=== PATIENT | male | born 1995 | race Two or more races ===

== ENCOUNTER 2025-07-24 04:12 | Inpatient (IN) | payer BC, OTHER ==
[~2025-07-24] VITALS: Ht 177.8 cm; Wt 102.3 kg
[2025-07-24] VITALS (7 sets, daily range): BP systolic 114–123; BP diastolic 66–72; PULSE 74–95; RESP 12–18; TEMP 98–99.5; O2SAT 94–100
[2025-07-24] MEDS ORDERED: LIDOCAINE VISCOUS 2% 15ML UD PO ONE (04:30)
[2025-07-24] MEDS ORDERED: MAALOX PLUS or MAALOX 30 ML PO ONE (04:30)
--- NOTE | 2025-07-24 04:33 | ED.PDOC ---
GI ASSESSMENT HPI Comments 29-year-old male who came to ER for abdominal pain. Patient denies any medical problems or any history of abdominal surgeries. States for the past 3 days, episodes of intermittent, sharp epigastric abdominal pain, nonradiating, 10/10 intensity, associated bouts of nausea and vomiting. Cvon-mok-cwedzaf antacid medications offered no relief. States pain is unrelated to food intake. REVIEW OF SYSTEMS: General: No fever, no chills, or fatigue HEENT: No sore throat, no earache, no congestion, no neck pain. Cardiac: No chest pain. No palpitations. Lungs: No shortness of breath, no cough. GI: (+) nausea, (+) vomiting, no diarrhea, no constipation, (+) abdominal pain : No dysuria, frequency, or urgency. No hematuria. Musculoskeletal: No joint pain , no joint swelling, no extremity edema. Skin: No rash, no itching. Neuro: No headache, no dizziness, no weakness EXAM: General: Awake, alert and oriented. No acute distress. Skin: Skin in warm, dry and intact. Appropriate color for ethnicity. HEENT: The head is normocephalic and atraumatic. Conjunctivae are clear without exudates or hemorrhage. Sclera is non-icteric. EOM are intact. No signs of nystagmus. Eyelids are normal in appearance without swelling or lesions. Oral mucosa is pink and moist Neck: The neck is supple with normal range of motion. No JVD. Cardiac: Heart rate and rhythm are normal. No murmurs, gallops, or rubs are aus cultated. Respiratory: No signs of respiratory distress. Lung sounds are clear in all lobes bilaterally without rales, rhonchi, or wheezes. Abdominal: Abdomen is soft, positive right upper quadrant and epigastric tenderness. Bowel sounds are present and normoactive in all four quadrants. Extremities: Upper and lower extremities are atraumatic in appearance without deformity or edema. Neurological: The patient is awake, alert and oriented to person, place, and time with normal speech. Speech is clear. There is no facial asymmetry. Psychiatric: Appropriate mood and affect. Good judgement and insight Chief Complaint: Abdominal Pain Time Seen by MD: 04:33 Reviewed Notes: Nurses Notes Allergies: Coded Allergies: NO KNOWN ALLERGIES (Unverified , 07/24/25) Home Meds Active Scripts Omeprazole (Gnp Omeprazole) 20 Mg Tab, 1 TAB PO DAILY, #90 TAB 1 Refill Prov:DANETTE GALAVIZ MD 07/24/25 Amoxicillin & Pot Clavulanate (AUGMENTIN TABLET) 875 Mg Tb, 875 MG PO BID for 7 Days, #14 TAB Prov:DANETTE GALAVIZ MD 07/24/25 Information Source: Patient Mode of Arrival: Ambulatory Timing: Days Duration: Intermittent Past Medical History PAST MEDICAL HISTORY: Denies Surgical History: Denies all surgeries Family History Family History: Reviewed,noncontributory to illness Social History Smoker: Non-Smoker Alcohol: Denies ETOH Use Drugs: Denies Drug Use Lives In: Home Was a procedure done? Was a procedure done?: No GI differential Dx Differential Diagnosis: Constipation, Diverticular disease, Gastritis/PUD, Gastroenteritis, Pancreatitis, UTI, Urolithiasis X-Ray, Labs, Meds, VS Vital Signs Date Time Temp Pulse Resp B/P (MAP) Pulse Ox O2 Delivery O2 Flow Rate FiO2 07/24/25 06:16 Room Air* 0 21 07/24/25 06:07 98.6 71 14 137/72 (93) 97 98.6 07/24/25 04:20 97.7 74 18 139/84 97 97.7 Lab Test 07/24/25 04:50 Range/Units White Blood Count 7.2 4.4-10.8 10^3/uL Red Blood Count 5.30 4.5-5.90 10^6/uL Hemoglobin 15.8 13.5-17.5 g/dL Hematocrit 45.4 41.0-53.0 % Mean Corpuscular Volume 85.6 80.0-100.0 fL Mean Corpuscular Hemoglobin 29.9 28.0-32.0 pg Mean Corpuscular Hemoglobin Concent 34.9 32.0-36.0 g/dL Red Cell Distribution Width 12.6 11.8-14.3 % Platelet Count 269 140-450 10^3/uL Mean Platelet Volume 7.9 6.9-10.8 fL Neutrophils (%) (Auto) 71.2 37.0-80.0 % Lymphocytes (%) (Auto) 19.9 10.0-50.0 % Monocytes (%) (Auto) 6.2 0.0-12.0 % Eosinophils (%) (Auto) 2.0 0.0-7.0 % Basophils (%) (Auto) 0.7 0.0-2.0 % Neutrophils # (Auto) 5.1 1.6-8.6 10 ^3/uL Lymphocytes # (Auto) 1.4 0.4-5.4 10 ^3/uL Monocytes # (Auto) 0.4 0-1.3 10 ^3/uL Eosinophils # (Auto) 0.1 0-0.8 10 ^3/uL Basophils # (Auto) 0 0-0.2 10 ^3/uL Nucleated Red Blood Cells 0.1 % Prothrombin Time 10.3 9.3-11.8 sec Prothrombin Time INR 0.97 0.9-1.15 Activated Partial Thromboplast Time 26.2 24.5-34.5 SEC Sodium Level 141 136-145 mmol/L Potassium Level 3.7 3.5-5.1 mmol/L Chloride Level 103 98-107 mmol/L Carbon Dioxide Level 28 20-31 mmol/L Anion Gap 10 5-15 Blood Urea Nitrogen 13 9-23 mg/dL Creatinine 1.16 0.700-1.30 mg/dL Glomerular Filtration Rate Calc 87 >90 mL/min BUN/Creatinine Ratio 11.2 10.0-20.0 Serum Glucose 125 H 74-106 mg/dL Calcium Level 9.6 8.7-10.4 mg/dL Total Bilirubin 0.7 0.2-1.0 mg/dL Aspartate Amino Transferase (AST) 20 13-40 U/L Alanine Aminotransferase (ALT) 22 7-40 U/L Alkaline Phosphatase 105 46-116 U/L Total Protein 8.3 H 5.7-8.2 g/dL Albumin 4.6 3.2-4.8 g/dL Lipase 49 12-53 U/L Microbiology Date/Time Source Procedure Growth Status 07/24/25 05:49 Blood Blood Culture - Preliminary NO GROWTH AFTER 24 HOURS OF INCUBATION. Resulted 07/24/25 05:39 Blood Blood Culture - Preliminary NO GROWTH AFTER 24 HOURS OF INCUBATION. Resulted Exam: CT CT AB PEL WO CON-NO ORAL OR IV History: Epigastric abdominal pain, right upper quadrant tenderness Comparison Study: None Technique: Multidetector spiral CT of the abdomen was performed from lung bases to pubic symphysis. Imaging was performed without IV contrast. Axial, coronal and sagittal multiplanar reformats were obtained from the axial data set by the technologist. Radiation Dose : 1. Abdomen/Pelvis: CTDIvol 16.48 mGy, DLP 867.92 mGy*cm. Findings: Evaluation of solid organs is limited due to lack of intravenous contrast use. Lung Bases: No acute or significant lung base finding. Normal heart size. No pleural or pericardial effusion. Liver: The liver is normal in size. No focal lesions. Gallbladder and Biliary Tree: 3.4 x 2.2 cm calcified gallstone within the neck of the gallbladder. Moderate gallbladder distention, pericholecystic edema and wall thickening. Spleen: Unremarkable Pancreas: The pancreas is grossly normal in appearance. Adrenal Glands: Unremarkable Kidneys: Kidneys are grossly normal without calculi or hydronephrosis. Bladder: Grossly unremarkable for degree of distention. Bowel: The stomach is grossly normal in appearance. Small bowel and colon are normal in caliber and distribution. The appendix is normal. Ascites: Absent Lymphadenopathy: No mesenteric, retroperitoneal or periportal lymphadenopathy. Abdominal Wall and Mesentery: Unremarkable. Vasculature: The visualized abdominal aorta is normal in size and caliber. Evaluation of abdominal and pelvic vessels is limited due to lack of intravenous contrast. Pelvic Organs: Unremarkable Musculoskeletal: No aggressive focal bony lesions, acute fractures or dislocation. IMPRESSION: 1. Cholelithiasis with findings concerning for acute cholecystitis. Radiation optimization: All CT scans at this facility use at least one of these dose optimization techniques: automated exposure control mA and/or kV adjustment per patient size (includes targeted exams where dose is matched to clinical indication) or iterative reconstruction. Time of 1ST Reevaluation: 04:30 Reevaluation 1ST: Unchanged Patient Education/Counseling: Need For Follow Up Family Education/Counseling: No Family Present SEPSIS Sepsis Screen Date sepsis recognized/suspect: Jul 24, 2025 Time Sepsis recognized/suspect: 0422 Recent Procedure: No On Antibiotic Therapy: No Respiratory Rate >20: No Heart Rate >90: No Temp<36 C (96.8 F) or >38.3 C: No SBP <90 or MAP <65 mmHG: No New Acute Mental Status Change: No Is the patient on CPAP, BIPAP,: No Physician Orders Urinalysis (07/24/25 04:14) Ct Ab Pel Wo Con-No Oral Or Iv (07/24/25 04:30) Blood Culture (07/24/25 05:28) Vital Signs Date Time Temp Pulse Resp B/P (MAP) Pulse Ox O2 Delivery O2 Flow Rate FiO2 07/24/25 06:16 Room Air* 0 21 07/24/25 06:07 98.6 71 14 137/72 (93) 97 98.6 07/24/25 04:20 97.7 74 18 139/84 97 97.7 Laboratory Tests Test 07/24/25 04:50 White Blood Count 7.2 10^3/uL (4.4-10.8) Departure 1 Departure Time of Disposition: 05:29 Impression: Primary Impression: Acute cholecystitis Disposition: ADMITTED INPATIENT Condition: Stable e-Prescriptions Omeprazole (Gnp Omeprazole) 20 Mg Tab 1 TAB PO DAILY, #90 TAB 1 Refill Prov: DANETTE GALAVIZ MD 07/24/25 Amoxicillin & Pot Clavulanate (AUGMENTIN TABLET) 875 Mg Tb 875 MG PO BID for 7 Days, #14 TAB Prov: DANETTE GALAVIZ MD 07/24/25 Comments Patient admitted to hospitalist service for further treatment, evaluation and monitoring. Extensive evaluation was performed in attempt to identify or rule out: (See differential diagnosis section) The following tests were ordered, and results were reviewed by me and discussed with patient: (See diagnostic results section) Discussion of management or test interpretation with external physician/other qualified health caregiver services home: Dr. Munoz, general surgery at 5:30 a.m. Addressed an acute or chronic illness that poses a threat to life or bodily function: Acute cholecystitis Decision regarding hospitalization or escalation of hospital level of care: Risk and benefits of admission for further treatment of patient's condition was cons idered. Due to patient's current clinical condition, high risk of decline and poor outcome if discharged and need for further inpatient management and monitoring, patient will be admitted to the hospital. Discussed with patient. Critical Care Note Critical Care Time?: No Stability Stability form required: No I personally scribed for SUZANNE LOZANO MD ([email or web address]) on 07/24/25 at 04:33. Electronically submitted by Hitesh Valenzuela ([email or web address]). I personally scribed for SUZANNE LOZANO MD ([email or web address]) on 07/24/25 at 05:28. Electronically submitted by Hitesh Valenzuela ([email or web address]). SUZANNE LOZANO MD Jul 24, 2025 04:33
[2025-07-24 05:21] LABS: Alanine Aminotransferase 22 U/L (7-40); Albumin 4.6 g/dL (3.2-4.8); Alkaline Phosphatase 105 U/L (46-116); Anion Gap 10 (5-15); BUN/Creatinine Ratio 11.2 (10.0-20.0); Blood Urea Nitrogen 13 mg/dL (9-23); Calcium 9.6 mg/dL (8.7-10.4); Carbon Dioxide 28 mmol/L (20-31); Chloride 103 mmol/L (98-107); Glucose 125 mg/dL (74-106); Lipase 49 U/L (12-53); Potassium 3.7 mmol/L (3.5-5.1); Sodium 141 mmol/L (136-145); Total Protein 8.3 g/dL (5.7-8.2)
[2025-07-24 05:22] LABS: Bilirubin, Total 0.7 mg/dL (0.2-1.0)
--- NOTE | 2025-07-24 05:24 | DVH ---
Exam: CT CT AB PEL WO CON-NO ORAL OR IV History: Epigastric abdominal pain, right upper quadrant tenderness Comparison Study: None Technique: Multidetector spiral CT of the abdomen was performed from lung bases to pubic symphysis. I maging was performed without IV contrast. Axial, coronal and sagittal multiplanar reformats were obta ined from the axial data set by the technologist. Radiation Dose : 1. Abdomen/Pelvis: CTDIvol 16.48 mGy, DLP 867.92 mGy*cm. Findings: Evaluation of solid organs is limited due to lack of intravenous contrast use. Lung Bases: No acute or significant lung base finding. Normal heart size. No pleural or pericardial effusion. Liver: The liver is normal in size. No focal lesions. Gallbladder and Biliary Tree: 3.4 x 2.2 cm calcified gallstone within the neck of the gallbladder. Mo derate gallbladder distention, pericholecystic edema and wall thickening. Spleen: Unremarkable Pancreas: The pancreas is grossly normal in appearance. Adrenal Glands: Unremarkable Kidneys: Kidneys are grossly normal without calculi or hydronephrosis. Bladder: Grossly unremarkable for degree of distention. Bowel: The stomach is grossly normal in appearance. Small bowel and colon are normal in caliber and d istribution. The appendix is normal. Ascites: Absent Lymphadenopathy: No mesenteric, retroperitoneal or periportal lymphadenopathy. Abdominal Wall and Mesentery: Unremarkable. Vasculature: The visualized abdominal aorta is normal in size and caliber. Evaluation of abdominal a nd pelvic vessels is limited due to lack of intravenous contrast. Pelvic Organs: Unremarkable Musculoskeletal: No aggressive focal bony lesions, acute fractures or dislocation. IMPRESSION: 1. Cholelithiasis with findings concerning for acute cholecystitis. Radiation optimization: All CT scans at this facility use at least one of these dose optimization nae hniques: automated exposure control mA and/or kV adjustment per patient size (includes targeted exam s where dose is matched to clinical indication) or iterative reconstruction.
[2025-07-24 05:30] LABS: Hematocrit 45.4 % (41.0-53.0); Hemoglobin 15.8 g/dL (13.5-17.5); Mean Corpuscular Hemoglobin 29.9 pg (28.0-32.0); Mean Corpuscular Volume 85.6 fL (80.0-100.0); Nucleated Red Blood Cells % 0.1 %
[2025-07-24] MEDS: MORPHINE SULFATE INJ 2 MG/ml SYRG IM ONE (06:06)
[2025-07-24] MEDS: PIPERACILLIN-TAZOB 3.375GM 100 ML IV ONE ×2 (06:18→07:45)
[2025-07-24] MEDS: SODIUM CHLORIDE 0.9% 1,000 ML IV ONE (06:19)
[2025-07-24] MEDS ORDERED: MORPHINE SULFATE INJ 2 MG/ml SYRG IV PRN (07:15)
[2025-07-24] MEDS ORDERED: hydrALAZINE HCL 20 MG/ML VL IV PRN (07:15)
[2025-07-24] MEDS ORDERED: ONDANSETRON HCL 4 MG/2 ML VIAL IV PRN (07:15)
[2025-07-24] MEDS ORDERED: NITROGLYCERIN 0.4 MG SL TAB SL PRN (07:15)
--- NOTE | 2025-07-24 07:23 | DVHHP2 ---
Admitting Diagnosis: cholecystitis History of Present Illness HPI 29 M who comes to for epigastric pain and n/v over the last day. He describes the pain as 10/10. CT abdomen suggests cholelithiasis and findings suggestive of cholecystitis. He will be admitted for surgical evaluation and supportive care. Review of Systems Constitutional: No symptom reported Eyes: No symptom reported Gastrointestinal: Nausea, Vomiting, Abdominal Pain H&P Exam Vital Signs Vital Signs Date Time Temp Pulse Resp B/P (MAP) Pulse Ox O2 Delivery O2 Flow Rate FiO2 07/24/25 06:16 Room Air* 0 21 07/24/25 06:07 98.6 71 14 137/72 (93) 97 98.6 General Appeara: Well developed Pulmonary/Respiratory: Normal breath sounds SEPSIS Sepsis Screen Date sepsis recognized/suspect: Jul 24, 2025 Time Sepsis recognized/suspect: 421 Recent Procedure: No On Antibiotic Therapy: No Respiratory Rate >20: No Heart Rate >90: No Temp<36 C (96.8 F) or >38.3 C: No SBP <90 or MAP <65 mmHG: No New Acute Mental Status Change: No Is the patient on CPAP, BIPAP,: No Physician Orders Urinalysis (07/24/25 04:14) Ct Ab Pel Wo Con-No Oral Or Iv (07/24/25 04:30) Blood Culture (07/24/25 05:28) Npo (Nothing By Mouth) Diet (07/24/25 Breakfast) Nitroglycerin Sublingual (Ntrostat Subli (07/24/25 07:15) Morphine Sulfate Injection (07/24/25 07:15) Stat Ekg For Chest Pain (07/24/25 07:13) Notify Md Of Changes From Base (07/24/25 07:13) Vice President Of Communications For 24 Hours (07/24/25 07:13) Emergency Dysrhythmia Protocol (07/24/25 07:13) Rhythm Strips Once Every Shift (07/24/25 07:13) Oxygen By Nasal Cannula (07/24/25 07:13) Complete Blood Count (07/25/25 05:00) Complete Blood Count (07/26/25 05:00) Complete Blood Count (07/27/25 05:00) Complete Blood Count (07/28/25 05:00) Complete Blood Count (07/29/25 05:00) Complete Blood Count (07/30/25 05:00) Complete Blood Count (07/31/25 05:00) Complete Blood Count (08/01/25 05:00) Comprehensive Metabolic Panel (07/25/25 05:00) Comprehensive Metabolic Panel (07/26/25 05:00) Comprehensive Metabolic Panel (07/27/25 05:00) Comprehensive Metabolic Panel (07/28/25 05:00) Comprehensive Metabolic Panel (07/29/25 05:00) Comprehensive Metabolic Panel (07/30/25 05:00) Comprehensive Metabolic Panel (07/31/25 05:00) Comprehensive Metabolic Panel (08/01/25 05:00) Sequential Compression Device (07/24/25 07:13) Npo Except Ice Chips (07/24/25 07:13) Chest Portable (07/24/25 07:13) Prothrombin Time W/ Inr (07/24/25 07:13) 1/2 Ns (07/24/25 07:15) Zosyn Extended Infusion (07/24/25 12:00) Ondansetron Hcl (Zofran) (07/24/25 07:15) Hydralazine Injection (Apresoline Inject (07/24/25 07:15) Morphine Sulfate Injection (07/24/25 07:15) *Consult Dr. Fan (07/24/25 07:13) Admit (07/24/25 07:13) Vital Signs Date Time Temp Pulse Resp B/P (MAP) Pulse Ox O2 Delivery O2 Flow Rate FiO2 07/24/25 06:16 Room Air* 0 21 07/24/25 06:07 98.6 71 14 137/72 (93) 97 98.6 07/24/25 04:20 97.7 74 18 139/84 97 97.7 Laboratory Tests Test 07/24/25 04:50 White Blood Count 7.2 10^3/uL (4.4-10.8) Medications Medications Dose Ordered Sig/Joyce Route Start Time Stop Time Status Last Admin Dose Admin Piperacillin Sod/ Tazobactam Sod 100 ml @ 100 mls/hr ONCE ONCE IV 07/24/25 05:30 07/24/25 06:29 DC 07/24/25 06:18 Sodium Chloride 1,000 ml @ 1,000 mls/hr Q1H ONCE IV 07/24/25 05:45 07/24/25 06:44 DC 07/24/25 06:19 Labs/Xrays Labs Test 07/24/25 04:50 Range/Units White Blood Count 7.2 4.4-10.8 10^3/uL Red Blood Count 5.30 4.5-5.90 10^6/uL Hemoglobin 15.8 13.5-17.5 g/dL Hematocrit 45.4 41.0-53.0 % Mean Corpuscular Volume 85.6 80.0-100.0 fL Mean Corpuscular Hemoglobin 29.9 28.0-32.0 pg Mean Corpuscular Hemoglobin Concent 34.9 32.0-36.0 g/dL Red Cell Distribution Width 12.6 11.8-14.3 % Platelet Count 269 140-450 10^3/uL Mean Platelet Volume 7.9 6.9-10.8 fL Neutrophils (%) (Auto) 71.2 37.0-80.0 % Lymphocytes (%) (Auto) 19.9 10.0-50.0 % Monocytes (%) (Auto) 6.2 0.0-12.0 % Eosinophils (%) (Auto) 2.0 0.0-7.0 % Basophils (%) (Auto) 0.7 0.0-2.0 % Neutrophils # (Auto) 5.1 1.6-8.6 10 ^3/uL Lymphocytes # (Auto) 1.4 0.4-5.4 10 ^3/uL Monocytes # (Auto) 0.4 0-1.3 10 ^3/uL Eosinophils # (Auto) 0.1 0-0.8 10 ^3/uL Basophils # (Auto) 0 0-0.2 10 ^3/uL Nucleated Red Blood Cells 0.1 % Sodium Level 141 136-145 mmol/L Potassium Level 3.7 3.5-5.1 mmol/L Chloride Level 103 98-107 mmol/L Carbon Dioxide Level 28 20-31 mmol/L Anion Gap 10 5-15 Blood Urea Nitrogen 13 9-23 mg/dL Creatinine 1.16 0.700-1.30 mg/dL Glomerular Filtration Rate Calc 87 >90 mL/min BUN/Creatinine Ratio 11.2 10.0-20.0 Serum Glucose 125 H 74-106 mg/dL Calcium Level 9.6 8.7-10.4 mg/dL Total Bilirubin 0.7 0.2-1.0 mg/dL Aspartate Amino Transferase (AST) 20 13-40 U/L Alanine Aminotransferase (ALT) 22 7-40 U/L Alkaline Phosphatase 105 46-116 U/L Total Protein 8.3 H 5.7-8.2 g/dL Albumin 4.6 3.2-4.8 g/dL Lipase 49 12-53 U/L Assessment/Plan Primary Diagnosis 1) Acute cholecystitis plan; NPO, IV ABx, IVF, pain control, antiemetics, preop labs and testing, surgical consult, daily labs, supportive care, will follow along Plan discussed with: Other (n) DANETTE GALAVIZ MD Jul 24, 2025 07:23
--- NOTE | 2025-07-24 07:44 | DVH ---
CLINICAL INFORMATION: 29 years old, Male; PRE OP. Acute cholecystitis. TECHNIQUE: Frontal and lateral chest radiographs were obtained. COMPARISON: None FINDINGS: Lungs: Clear. Cardiac: Heart size is within normal limits. Pulmonary vasculature: Unremarkable Mediastinum/melody: Within normal limits. Bones: No evidence of acute osseous abnormality. Other: No other significant finding. IMPRESSION: No evidence of acute disease in the chest.
[2025-07-24 07:58] LABS: INR 0.97 (0.9-1.15); Partial Thromboplastin Time 26.2 SEC (24.5-34.5); Prothrombin Time 10.3 sec (9.3-11.8)
[2025-07-24] MEDS: SOD CHL 0.45% 1,000 ML IV SCH (08:26)
[2025-07-24] MEDS ORDERED: METOCLOPRAMIDE HCL 5MG/ml INJ 2ml VIAL IV PRN (08:30)
[2025-07-24] MEDS ORDERED: MORPHINE SULFATE 4 MG/ML SYR/VIAL IV PRN ×2 (08:30→09:00)
[2025-07-24] MEDS: KETOROLAC TROMETH 30 MG/ML 1ML VIAL IV ONE (08:30)
[2025-07-24] MEDS ORDERED: HYDROmorphone HCL 2 MG/ML VL/or syr IV PRN ×2 (08:30)
[2025-07-24] MEDS ORDERED: PROPOFOL 10 MG/ML 20 ML IV ONE (08:44)
[2025-07-24] MEDS ORDERED: fentaNYL CITRATE 100 MCG/2 ML VL ONE (08:44)
[2025-07-24] MEDS ORDERED: ROCURONIUM 10MG/ML 10ML VIAL IV ONE (08:44)
[2025-07-24] MEDS ORDERED: LIDOCAINE HCL 2% TOP JELLY 5ML TOP ONE (08:44)
[2025-07-24] MEDS ORDERED: ONDANSETRON HCL 4 MG/2 ML VIAL ONE (08:44)
[2025-07-24] MEDS ORDERED: LIDOCAINE 1% INJ PF 5ML AMP ONE (08:44)
[2025-07-24] MEDS ORDERED: SODIUM CHLORIDE LOCK 10 ML ONE (08:44)
[2025-07-24] MEDS ORDERED: MIDAZOLAM HCL 2MG/2ML 2ml VIAL (1mg/ml) ONE (08:44)
[2025-07-24] MEDS ORDERED: HYDROmorphone HCL 2 MG/ML VL/or syr ONE (08:45)
[2025-07-24] MEDS: LIDOCAINE W/ EPINEPHRINE 1% 20ML VIAL ONE (11:38)
[2025-07-24] MEDS: BUPIVACAINE 0.5% P/F INJ 10 ML VIAL ONE (11:38)
--- NOTE | 2025-07-24 11:53 | DVHINCON2 ---
Date of service: Jul 24, 2025 Allergies: Coded Allergies: NO KNOWN ALLERGIES (Unverified , 07/24/25) Current Medications Current Medications Medications (Trade) Dose Ordered Sig/Joyce Route PRN Reason Start Time Stop Time Status Last Admin Nitroglycerin (Ntrostat Sublingual) 0.4 mg Q5MINP PRN SL FOR CHEST PAIN 07/24/25 07:15 Morphine Sulfate 2 mg Q30M PRN IV FOR CHEST PAIN 07/24/25 07:15 Sodium Chloride 1,000 ml @ 100 mls/hr Q10H IV 07/24/25 07:15 07/24/25 08:26 Piperacillin Sod/ Tazobactam Sod 100 ml @ 25 mls/hr Q6HR IV 07/24/25 12:00 Ondansetron HCl (Zofran) 4 mg Q4HP PRN IV n/v 07/24/25 07:15 Hydralazine HCl (Apresoline Injection) 10 mg Q4HR PRN IV sbp >160 07/24/25 07:15 Morphine Sulfate 2 mg Q4HP PRN IV pain 07/24/25 07:15 Metoclopramide HCl (Reglan Injection) 10 mg ONCE PRN IV NAUSEA / VOMITING 07/24/25 08:30 07/24/25 08:46 DC Hydromorphone HCl (Dilaudid Injection) 0.5 mg Q10M PRN IV SEVERE PAIN (7-10 PAIN SCALE) 07/24/25 08:30 07/24/25 09:11 DC Morphine Sulfate 2 mg Q4H PRN IV BREAKTHRU PAIN SCALE 7-10 07/24/25 08:30 07/24/25 12:31 Hydromorphone HCl (Dilaudid Injection) 0.25 mg Q10M PRN IV MODERATE PAIN (4-6 PAIN SCALE) 07/24/25 08:30 07/24/25 09:01 DC Morphine Sulfate 1 mg Q30M PRN IV SEVERE PAIN (7-10 PAIN SCALE) 07/24/25 09:00 07/24/25 11:01 DC Vital Signs Vital Signs Date Time Temp Pulse Resp B/P (MAP) Pulse Ox O2 Delivery O2 Flow Rate FiO2 07/24/25 07:56 98.0 74 16 114/72 (86) 99 98.0 07/24/25 06:16 Room Air* 0 21 Labs/Diagnostic Data Labs Test 07/24/25 04:50 Range/Units White Blood Count 7.2 4.4-10.8 10^3/uL Red Blood Count 5.30 4.5-5.90 10^6/uL Hemoglobin 15.8 13.5-17.5 g/dL Hematocrit 45.4 41.0-53.0 % Mean Corpuscular Volume 85.6 80.0-100.0 fL Mean Corpuscular Hemoglobin 29.9 28.0-32.0 pg Mean Corpuscular Hemoglobin Concent 34.9 32.0-36.0 g/dL Red Cell Distribution Width 12.6 11.8-14.3 % Platelet Count 269 140-450 10^3/uL Mean Platelet Volume 7.9 6.9-10.8 fL Neutrophils (%) (Auto) 71.2 37.0-80.0 % Lymphocytes (%) (Auto) 19.9 10.0-50.0 % Monocytes (%) (Auto) 6.2 0.0-12.0 % Eosinophils (%) (Auto) 2.0 0.0-7.0 % Basophils (%) (Auto) 0.7 0.0-2.0 % Neutrophils # (Auto) 5.1 1.6-8.6 10 ^3/uL Lymphocytes # (Auto) 1.4 0.4-5.4 10 ^3/uL Monocytes # (Auto) 0.4 0-1.3 10 ^3/uL Eosinophils # (Auto) 0.1 0-0.8 10 ^3/uL Basophils # (Auto) 0 0-0.2 10 ^3/uL Nucleated Red Blood Cells 0.1 % Prothrombin Time 10.3 9.3-11.8 sec Prothrombin Time INR 0.97 0.9-1.15 Activated Partial Thromboplast Time 26.2 24.5-34.5 SEC Sodium Level 141 136-145 mmol/L Potassium Level 3.7 3.5-5.1 mmol/L Chloride Level 103 98-107 mmol/L Carbon Dioxide Level 28 20-31 mmol/L Anion Gap 10 5-15 Blood Urea Nitrogen 13 9-23 mg/dL Creatinine 1.16 0.700-1.30 mg/dL Glomerular Filtration Rate Calc 87 >90 mL/min BUN/Creatinine Ratio 11.2 10.0-20.0 Serum Glucose 125 H 74-106 mg/dL Calcium Level 9.6 8.7-10.4 mg/dL Total Bilirubin 0.7 0.2-1.0 mg/dL Aspartate Amino Transferase (AST) 20 13-40 U/L Alanine Aminotransferase (ALT) 22 7-40 U/L Alkaline Phosphatase 105 46-116 U/L Total Protein 8.3 H 5.7-8.2 g/dL Albumin 4.6 3.2-4.8 g/dL Lipase 49 12-53 U/L Assessment 07-24- 29 year old male patient ,non smoker, non drinker, denies use of drugs, no prior operations or medical conditions, no allergies has been ill for about 5 days with right upper quafdrant pain and nausea, usually has about three "attack" of post prandial ruq pain per week. abdomen tender to palpation, ct scan with evidence of cholelithiasis and cholecystitis.operation and risks and potential complications explained in detail. after conferring with his patient decided to proceed with operation Plan discussed with: Patient AUSTIN MIRANDA MD Jul 24, 2025 11:53
--- NOTE | 2025-07-24 12:18 | DVHOP ---
DATE OF SURGERY: 07/24/2025 PREOPERATIVE DIAGNOSIS: Cholelithiasis, cholecystitis. POSTOPERATIVE DIAGNOSIS: Cholelithiasis, cholecystitis. SURGEON: Clemente Fan MD. ROPING TENDER: Spencer Tamez ANESTHESIA: General endotracheal. ANESTHESIOLOGIST: Dr. Sharma. PROCEDURES: Laparoscopy, laparoscopic cholecystectomy. DESCRIPTION OF PROCEDURE: Under general endotracheal anesthesia with the patient's skin prepped and draped, a supraumbilical incision was made and Veress needle was inserted into the peritoneal cavity by the hanging drop technique in order to establish pneumoperitoneum to 15 mmHg pressure by insufflation with carbon dioxide. With the abdomen fully distended, the needle was removed and replaced with a 5 mm trocar port through which a 0-degree viewing laparoscope was inserted and under direct vision, an additional 5 mm port was inserted through the right anterior axillary line at the level of the umbilicus and through the subxiphoid midline skin was a 10 mm port inserted. Instrumentation was introduced and laparoscopy was performed revealing no obvious unexpected pathology. The gallbladder was affected by chronic and acute cholecystitis and it was almost entirely intrahepatic. The edematous tissues around the infundibular portion of the gallbladder were dissected revealing the infundibular portion of the gallbladder densely distended by a huge stone impacted in the ostium of the cystic duct. The cystic duct and cystic artery were identified, circumferentially dissected and skeletonized. The cystic duct was exceedingly short, approximately 2 mm in length. It was circumferentially cleansed of edematous areolar tissues and then divided between metallic clips applied very close to the gallbladder so as to minimize the impingement and potential injury to the common bile duct. Cystic artery similarly was divided between metallic clips and the gallbladder was resected from its liver bed by electrocautery and traction. The stone was extracted from the portion of the gallbladder and placed into a small specimen extraction bag and placed into the lateral abdominal cavity in expectation of removal of the gallbladder from the abdominal cavity. The fully mobilized gallbladder was placed into a specimen extraction bag and retrieved from the peritoneal cavity through the subxiphoid incision. Subsequently, the large stone was removed from the peritoneal cavity separately. Both specimens were submitted for histopathologic confirmation. The right upper quadrant was then profusely irrigated. Irrigant was aspirated. Hemostasis was meticulously inspected and found to be complete. At the termination of the procedure, there was no evidence of bleeding from either the liver bed or from the port sites. A 10 mm Greg-Mallory drain was placed underneath the right lobe of the liver due to the intrahepatic nature of the gallbladder. The drain was exteriorized through the 5 mm port site on the right flank and secured with a 2-0 nylon suture. Instrumentation was then withdrawn. Pneumoperitoneum was evacuated. Fascia defect closed using #0 Vicryl, wounds approximated using Monocryl sutures, Dermabond glue, and Steri-Strips. The patient remained stable throughout the procedure and left the operating room following an accurate needle and sponge count. The patient's , Roula, was thoroughly informed at [phone]. MD TRAVIS Hartley/MUKUND TID: [id number] RECEIPT: [id number]
[2025-07-24] MEDS: D5W/SOD CHL 0.45%/KCL 20MEQ 1,000 ML IV ONE (14:24)
[2025-07-24] MEDS: PIPERACILLIN-TAZOB 3.375GM 100 ML IV SCH (14:25)
[2025-07-24] MEDS: MORPHINE SULFATE INJ 2 MG/ml SYRG IV PRN (14:51)
[2025-07-24] MEDS ORDERED: OMEP20TA PO (16:56)
[2025-07-24] MEDS ORDERED: AUG875T PO (16:56)
--- NOTE | 2025-07-24 17:02 | DVHDS2 ---
New Physician D'charge PN Admitting Diagnosis Admitting Diagnosis cholecystitis Discharge Diagnosis cholecystitis s/p lap irwin Operations or Procedures lap irwin Reason(s) For Hospitalization Surgery Hospital Course 29 M who comes to ER with n/v and abd pain. He has no PMHx. His CBC and chem panel were normal and his CT abdomen showed gallstones and findings suggestive of acute cholecystitis. He was admitted, kept NPO and started on IV Abx and IVF hydration. He was seen by surgery and consented for cholecystectomy, He underwent laparoscopic cholecystectomy in 07/24 with no complications. He has been started on diet by surgery and once cleared by surgery he will be discharged home with outpt follow up via [employer]. Scripts for PO Abx sent to his pharmacy on file. Ok to dc home once cleared by general surgery. Treatment Plan Discharge Condition of Discharge Good Disposition Home Discharge Instructions Diet: Regular Activity: No Restrictions, As Tolerated Medications: see med sheet Follow Up Care Follow Up/Referral: pcp Discharge Statement: "Patient was advised to return to the ER or call 911 if any headaches, dizziness, shortness of breath, chest pain, abdominal pain, bleeding, fevers, or worsening of medical condition. Patient was counseled about treatment plan, medications, possible side effects, patientverbalized understanding. All questions were answered to the best of my ability. This discharge took greater then 30 minutes in planning, reviewing documentation, counseling the patient, and discussing with other team members." DANETTE GALAVIZ MD Jul 24, 2025 17:02
[2025-07-24] MEDS ORDERED: SODIUM CHLORIDE 0.9% 1,000 ML IV SCH (19:00)
[2025-07-24 22:07] LABS: Albumin 4.4 g/dL (3.2-4.8); Alkaline Phosphatase 105 U/L (46-116); Anion Gap 10 (5-15); BUN/Creatinine Ratio 6.8 (10.0-20.0); Calcium 9.2 mg/dL (8.7-10.4); Carbon Dioxide 23 mmol/L (20-31); Chloride 103 mmol/L (98-107); Potassium 4.2 mmol/L (3.5-5.1); Sodium 136 mmol/L (136-145); Total Protein 7.9 g/dL (5.7-8.2)
[2025-07-24 22:08] LABS: Bilirubin, Total 0.8 mg/dL (0.2-1.0)
[2025-07-24 22:10] LABS: Alanine Aminotransferase 42 U/L (7-40); Blood Urea Nitrogen 7 mg/dL (9-23); Glucose 140 mg/dL (74-106)
[2025-07-25 01:00] VITALS: BP 111/61; PULSE 72; RESP 19; TEMP 98; O2SAT 96
[2025-07-25 05:00] VITALS: BP 126/78; PULSE 71; RESP 19; TEMP 98.1; O2SAT 96
[2025-07-25 06:30] LABS: Hematocrit 42.6 % (41.0-53.0); Hemoglobin 14.6 g/dL (13.5-17.5); Mean Corpuscular Hemoglobin 29.7 pg (28.0-32.0); Mean Corpuscular Volume 86.6 fL (80.0-100.0); Nucleated Red Blood Cells % 0.0 %
[2025-07-25 06:46] LABS: Alanine Aminotransferase 38 U/L (7-40); Alkaline Phosphatase 104 U/L (46-116); Anion Gap 11 (5-15); BUN/Creatinine Ratio 7.3 (10.0-20.0); Calcium 9.4 mg/dL (8.7-10.4); Carbon Dioxide 26 mmol/L (20-31); Chloride 101 mmol/L (98-107); Potassium 4.1 mmol/L (3.5-5.1); Sodium 138 mmol/L (136-145); Total Protein 7.9 g/dL (5.7-8.2)
[2025-07-25 06:47] LABS: Albumin 4.5 g/dL (3.2-4.8); Bilirubin, Total 1.0 mg/dL (0.2-1.0)
[2025-07-25 06:51] LABS: Blood Urea Nitrogen 7 mg/dL (9-23); Glucose 107 mg/dL (74-106)
--- NOTE | 2025-07-25 07:28 | DVHPN2 ---
Progress Note Date Seen: Jul 25, 2025 Medical Necessity Reason Pt with a Central, PICC or Fol: No Objective vital signs Vital Sign Date Time Temp Pulse Resp B/P (MAP) Pulse Ox O2 Delivery O2 Flow Rate FiO2 07/25/25 05:00 98.1 71 19 126/78 (94) 96 98.1 07/24/25 20:00 Room Air* 0 21 Total Intake and Output 07/24/25 07/24/25 07/25/25 15:00 23:00 07:00 Intake Total 100 ml 300 ml 925 ml Output Total 40 ml 1630 ml Balance 60 ml -1330 ml 925 ml medications Current Medications Medications Dose Ordered Sig/Joyce Route Start Time Stop Time Status Last Admin Dose Admin Nitroglycerin 0.4 mg Q5MINP PRN SL 07/24/25 07:15 Morphine Sulfate 2 mg Q30M PRN IV 07/24/25 07:15 Piperacillin Sod/ Tazobactam Sod 100 ml @ 25 mls/hr Q6HR IV 07/24/25 12:00 07/25/25 05:40 25 MLS/HR Ondansetron HCl 4 mg Q4HP PRN IV 07/24/25 07:15 Hydralazine HCl 10 mg Q4HR PRN IV 07/24/25 07:15 Morphine Sulfate 2 mg Q4HP PRN IV 07/24/25 07:15 07/24/25 22:16 2 MG Sodium Chloride 1,000 ml @ 100 mls/hr Q10H IV 07/24/25 19:00 laboratory and microbiology Laboratory Tests 07/25/25 05:32 Test 07/25/25 05:32 Range/Units Serum Glucose 107 H 74-106 mg/dL Problem List/Assessment/Plan Problem List/Assessment/Plan 07/25/25feels "better"than before operation, tolerating po intake, no nauseas, ambulated without light headedness, abdomen appropriately tender,LENIN drainage non bilious, minimal, wound dressings dry. may be discharged with po antibiotic for about 5 days and pain Rx he may shower on Sunday. Plan discussed with: Patient, Other AUSTIN MIRANDA MD Jul 25, 2025 07:28
[2025-07-25 08:00] VITALS: PULSE 63; RESP 16; O2SAT 97
[2025-07-25 08:59] VITALS: BP 123/73; PULSE 63; RESP 16; TEMP 97.3; O2SAT 97
== END 2025-07-25 09:00 | disposition home or self-care (01) | DRG 419 ==
LOC: ER 04:12 → OVERFLOW 07:13 → CENTRAL 12:42
PROVIDERS: ADMIT Internal Medicine; ATTEND Internal Medicine
PROC: 0FT44ZZ Resection of Gallbladder, Percutaneous Endoscopic Approach (ICD-10-PCS; principal; 2025-07-24 10:40)
DX: K80.12 Calculus of gallbladder with acute and chronic cholecystitis without obstruction (principal); Z88.1 Allergy status to other antibiotic agents; Z79.899 Other long term (current) drug therapy
CPT/HCPCS: 36415; 71046; 74176; 80053; 82247; 83690; 85025; 85610; 85730; 86850; 86900; 86901; 87040; 96365; G0378; J2250; J2405; J2543; J2704; J3490